=== PATIENT | female | born 1945 | race Caucasian/White ===

== ENCOUNTER → 2017-01-04 | Outpatient (CLI) | payer MEDICARE ==
--- NOTE | 2017-01-10 09:04 | RADIOLOGY REPORT PS360 ---
EXAM: CT LUNG LOW DOSE WO CONTRAST COMPARISON: None HISTORY: 71-year-old female with 55 pack-year smoking history ORDERING PHYSICIAN: Perez Suarez MD PATIENT AGE: 71 years TECHNIQUE: The exam was performed on a GE Light Speed [address] scanner using 2.94 mGy CTDI. A low dose helical CT CHEST was performed on a multi-detector scanner The LDCT was performed in a facility that meets the criteria for the screening program. Data regarding this exam was submitted to [employer] which is an approved registry. The order for this exam indicates that it came as a result of a lung cancer screening counseling shard decision-making visit that included all the elements required of such a visit including smoking cessation. The radiologist interpreting this exam meets the [facility] criteria for the LDCT lung cancer screening program. The exam is reported using the Lung-RADS classification scale and reported to the [employer] registry. NOTE: THIS STUDY WAS PERFORMED FOR THE SPECIFIC PURPOSES OF LUNG CANCER SCREENING AND IS NOT AN ALTERNATIVE TO DIAGNOSTIC CHEST CT. RADIATION DOSE: CTDI vol(CT dose Index-volume) = 2.94mG DLP (Dose Length Product) = 110.89 mGcm FINDINGS: Calcified granulomas present in the right upper lobe. Small hyperdense nodule measuring 2 mm is present in the superior segment left lower lobe also likely due to a granuloma. No suspicious pulmonary nodules evident. No effusions or infiltrates. There is mild hyperinflation with attenuation of the peripheral pulmonary vessels consistent with obstructive chronic bronchitis. Calcified nodes are present in the mediastinum. No adenopathy IMPRESSION: 1. Lung RADS Category: 2, BENIGN 2. Other findings: Obstructive chronic bronchitis RECOMMENDATIONS: 12 month LDCT screening
== END ==
LOC: RAD 12:42
DX: Z87.891 Personal history of nicotine dependence (principal); Z12.2 Encounter for screening for malignant neoplasm of respiratory organs
CPT/HCPCS: G0297